=== PATIENT | male | born 1950 | race Caucasian/White ===

== ENCOUNTER → 2017-06-14 | Outpatient (CLI) | payer BC, OTHER ==
[~2017-06-14] VITALS: Ht 172.7 cm; Wt 96.2 kg
[~2017-06-14] MED LIST: AVAPRO300 MG PO; FLEXERIL PO; FLONASE 0.05%50 MCG NASAL; HYTRIN 5 M5 MG/1 CAP PO; KEFLEX500 MG PO; LEVOTHYROXIN0.137 M1 PO; LIPITOR 20 MG T20 M1 PO; NORVASC5 MG PO; REMERON15 MG PO
--- NOTE | ~2017-06-14 | HPC ---
[facility] [place] [address] PAIN MANAGEMENT CONSULTATION Name: CRYSTAL EM [facility] [id number] Admission: 06/14/17 Attend Phys: Horacio Bermudez MD Discharge: Date of : 54 Report #: [id number] THIS REPORT FOR: //name// CC: Horacio Yeung MD DATE OF SERVICE: 06/14/2017 FOLLOWUP HISTORY: The patient is a 67-year-old gentleman who has been seen in the pain clinic in the past. He underwent an epidural steroid injection in October 2016. He was having pain in the L3-4 distribution of his leg. He has noticed that his pain has started to come back. He is having pain, which radiates down into that dermatomal area, but not as severe it as it had been. At this juncture, he would like to undergo another epidural steroid injection to help with this pain, numbness, and weakness. He has had no complications from the procedure in the past. PHYSICAL EXAMINATION: Blood pressure 127/79, pulse 44, respiratory rate 14, room air saturation 97%. Height 5 feet 8 inches tall and weight 212 pounds, BMI 32. The patient has pain and discomfort in the L3-L4 distribution with numbness and tingling sensations. IMPRESSION: Lumbar radiculopathy, L3-L4 distribution/dermatomal disk areas. RECOMMENDATIONS: We discussed treatment options with the patient. Risks and benefits of an epidural steroid injection were again reviewed. Possible complications which could include infection, increased muscle soreness, headache, bleeding, muscle trauma, nerve trauma were explained and the patient elects to proceed. PROCEDURE NOTE: The patient was placed in the prone position. Fluoroscopy was used to identify the L3-L4 interspace. This area had been sterilely prepped with Betadine and infiltrated with 0.25% bupivacaine. Total of 80 mg Depo-Medrol, 40 mg triamcinolone and 2 mL of 0.25% bupivacaine was injected. The patient tolerated the procedure well. There were no complications. He will follow up in the future as needed. We would like to thank you for letting us participate in his care. We hope he continues to improve. <ELECTRONICALLY SIGNED> By: Horacio Bermudez MD 06/15/17 0822 1408 1438 Horacio Bermudez MD /nt
[2017-06-14 09:35] VITALS: BP 127/79
== END | disposition home or self-care (01) ==
LOC: PAIN 06:38
DX: M54.16 Radiculopathy, lumbar region (principal); Z98.890 Other specified postprocedural states

== ENCOUNTER → 2017-11-10 | Outpatient (CLI) | payer BC, OTHER ==
[~2017-11-10] VITALS: Ht 172.7 cm; Wt 96.6 kg
--- NOTE | ~2017-11-10 | HPC ---
[facility] [place] [address] PAIN MANAGEMENT CONSULTATION Name: CRYSTAL EM [facility] [id number] Admission: 11/10/17 Attend Phys: Horacio Bermudez MD Discharge: Date of : 54 Report #: [id number] THIS REPORT FOR: //name// CC: Horacio Yeung DATE OF SERVICE: 11/10/2017 FOLLOWUP COMPLAINT: Low back pain with pain down the right leg. Pain improved after the last epidural steroid injection and would like to proceed with another. FOLLOWUP HISTORY: The patient is a gentleman who underwent an epidural steroid injection in the L3-L4 distribution. He gleaned benefit from that. Over the last few weeks, he has noted some recurrence of discomfort. The patient underwent a last treatment in 06/2017. Now, he is noting pain again in the L3-L4 distribution radiating down into his leg with some numbness and weakness in this area. He had no complications after the last procedure. He would like to proceed with another injection today. He rates his pain as a 4/10. It gets worse in the morning. Notes that it can be helped by use of heat, cold and sometimes sitting in a sauna or whirlpool. ALLERGIES: No known drug allergies. MEDICATIONS: Norvasc 5 mg daily, Lipitor 20 mg, Avapro 300 mg, Hytrin 5 mg a total of 10 mg at bedtime, Synthroid 0.137 mcg. PHYSICAL EXAMINATION: VITAL SIGNS: Blood pressure 131/78, pulse 55, respiratory rate 16, room air saturation is 98%. Height 5 feet 8 inches, weight 213 pounds. He has not fallen since we saw him last. HEENT: Unremarkable. NECK: Supple without adenopathy. CHEST: Clear to auscultation. HEART: Regular rate. ABDOMEN: Nontender. The patient has decreased sensation to light touch, pinprick in the right L3-L4 distribution. IMPRESSION: Lumbar radiculopathy, L3-L4 dermatomal distribution. RECOMMENDATIONS: We discussed treatment options with the patient. Risks and benefits of epidural steroid injections were discussed. A model was used to review the anatomy of this area. Possible complications of the procedure which could include but are not limited to infection, increased muscle soreness, headache, bleeding, trauma, nerve trauma or muscle trauma, nerve trauma were explained. The [place] [address] PAIN MANAGEMENT CONSULTATION Name: CRYSTAL EM Room #: REG CLDalila SchwartzNickolas#: [id number] Admission: 11/10/17 Attend Phys: Horacio Bermudez MD Discharge: Date of : 54 Report #: [id number] PROCEDURE NOTE: The patient was placed in the prone position. Fluoroscopy was used to identify the L3-L4 interspace. The patient's back had been sterilely prepped with Betadine solution. An AP and lateral imaging using fluoroscopy was used to confirm appropriate needle placement. After this was performed, a total of 40 mg triamcinolone, 80 mg Depo-Medrol were injected. A total of 2 mL of 0.25% bupivacaine was infiltrated in this area. The patient tolerated the procedure well. His back was evaluated. There was no significant bleeding. A Band-Aid was placed. The patient was then taken to the recovery room where he remained for an appropriate amount of time. He will follow up in the future as needed. There were no complications. We would like to thank you for letting us participate in his care. We hope he continues to improve. <ELECTRONICALLY SIGNED> By: Horacio Bermudez MD 11/22/17 0837 1457 0100 Horacio Bermudez MD /[facility]
[2017-11-10 08:12] VITALS: BP 131/78
== END | disposition home or self-care (01) ==
LOC: PAIN 07:08
DX: M54.16 Radiculopathy, lumbar region (principal); Z98.890 Other specified postprocedural states; Z79.899 Other long term (current) drug therapy

== ENCOUNTER → 2019-06-19 | Outpatient (CLI) | payer BC, OTHER | LOC: RAD 09:45 | DX: R06.02 Shortness of breath (principal); R06.00 Dyspnea, unspecified ==

== ENCOUNTER → 2019-11-21 | Outpatient (CLI) | payer OTHER | LOC: SJCVC 15:12 | DX: I10 Essential (primary) hypertension (principal); R00.1 Bradycardia, unspecified; E78.5 Hyperlipidemia, unspecified; G47.33 Obstructive sleep apnea (adult) (pediatric); E03.9 Hypothyroidism, unspecified; E78.00 Pure hypercholesterolemia, unspecified; Z79.82 Long term (current) use of aspirin; Z79.899 Other long term (current) drug therapy; Z86.73 Personal history of transient ischemic attack (TIA), and cerebral infarction without residual deficits ==

== ENCOUNTER 2020-04-05 09:47 | Emergency (ER) | payer OTHER ==
[~2020-04-05] VITALS: Ht 170.2 cm; Wt 95.3 kg
[2020-04-05 10:06] LABS: ABSOLUTE NEUTROPHILS 4.1 thou/uL (1.4-8.2); BASOPHILS 0.9 % (0.0-2.0); EOSINOPHILS 5.1 % (0.0-3.0); HEMOGLOBIN 14.9 gm/dL (14.0-18.0); LYMPHOCYTES 24.6 % (24.0-44.0); MCH 32.7 pg (26.0-34.0); MCHC 34.7 g/dL (28.0-37.0); MCV 94.2 fL (80.0-100.0); MONOCYTES 6.8 % (1.0-8.0); PLATELET COUNT 221 thou/uL (150-400); POLYS 62.6 % (36.0-66.0); RBC 4.57 mil/uL (4.50-6.00); RDW 13.1 % (10.5-14.5); WBC 6.5 thou/uL (4.0-11.0)
[2020-04-05 10:14] LABS: ANION GAP 6 mmol/L (7-16); BUN 19 mg/dL (7-18); CALCIUM 8.5 mg/dL (8.5-10.1); CHLORIDE 105 mmol/L (98-107); CO2 30 mmol/L (21-32); GLUCOSE 103 mg/dL (74-106); POTASSIUM 3.2 mmol/L (3.5-5.1); SODIUM 141 mmol/L (136-145)
[2020-04-05 10:24] LABS: ALBUMIN 3.6 g/dL (3.4-5.0); MAGNESIUM 1.9 mg/dL (1.8-2.4); SGOT 22 U/L (15-37); SGPT 32 U/L (30-65); TOTAL BILIRUBIN 0.7 mg/dL (<0.1-1.0); TOTAL PROTEIN 7.5 g/dL (6.4-8.2); TROPONIN-I <0.06 ng/mL (<0.06)
[2020-04-05] MEDS ORDERED: NAPROSYN500 MG PO (11:11)
[2020-04-05] MEDS ORDERED: NORFLEX100 MG PO (11:11)
[2020-04-05 11:31] VITALS: BP 115/42
--- NOTE | 2020-04-05 12:10 | EKG ---
[facility] [place] [address] ELECTROCARDIOGRAM REPORT Name: CRYSTAL EM Room #: DEP [facility]..#: [id number] Admission: 04/05/20 Attend Phys: Discharge: 04/05/20 Date of : 54 Report #: [id number] THIS REPORT FOR: cc: Eduardo Yeung MD, Neal A. MD Park, Jin S. 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[employer] [facility] : 1950 Requested By: Ulices Sweeney Order Number: [id number] MD: Alonso Person Measurements Intervals [place] Rate: 55 P: 51 [place]: 181 QRS: -6 QRSD: 98 T: 66 QT: 433 QTc: 415 Interpretive Statements Sinus rhythm Probable left atrial enlargement No previous ECG available for comparison Electronically Signed On 04-05-2020 12:08:26 CDT by Alonso Person [email or web address] <ELECTRONICALLY SIGNED> By: Alonso Person MD 04/05/20 1208 0951 0 MD VIRGEN Thompson
== END 2020-04-05 11:31 | disposition home or self-care (01) ==
LOC: ER 09:47
PROVIDERS: Emergency Medicine
DX: R07.89 Other chest pain (principal); M43.6 Torticollis; E87.6 Hypokalemia; R20.2 Paresthesia of skin; R20.0 Anesthesia of skin; I10 Essential (primary) hypertension; E66.9 Obesity, unspecified; Z98.890 Other specified postprocedural states; Z79.899 Other long term (current) drug therapy; Z68.30 Body mass index [BMI] 30.0-30.9, adult

== ENCOUNTER → 2020-04-08 | Outpatient (CLI) | payer OTHER ==
[~2020-04-08] MED LIST changes: +NAPROSYN500 MG PO; +NORFLEX100 MG PO
== END ==
LOC: SJCVC 13:45
PROVIDERS: ATTEND Internal Medicine
DX: R00.1 Bradycardia, unspecified (principal); R94.31 Abnormal electrocardiogram [ECG] [EKG]; I10 Essential (primary) hypertension; E78.5 Hyperlipidemia, unspecified; G47.33 Obstructive sleep apnea (adult) (pediatric); E03.9 Hypothyroidism, unspecified; E78.00 Pure hypercholesterolemia, unspecified; Z79.82 Long term (current) use of aspirin; Z79.899 Other long term (current) drug therapy; Z82.49 Family history of ischemic heart disease and other diseases of the circulatory system; Z86.73 Personal history of transient ischemic attack (TIA), and cerebral infarction without residual deficits

== ENCOUNTER → 2020-04-21 | Outpatient (CLI) | payer OTHER | LOC: SJCVC 08:41 → SJCVCIMAG 13:25 | PROVIDERS: ATTEND Internal Medicine | DX: I08.3 Combined rheumatic disorders of mitral, aortic and tricuspid valves (principal); I77.810 Thoracic aortic ectasia; R00.1 Bradycardia, unspecified; I65.21 Occlusion and stenosis of right carotid artery; G47.30 Sleep apnea, unspecified; I10 Essential (primary) hypertension; Z86.73 Personal history of transient ischemic attack (TIA), and cerebral infarction without residual deficits ==

== ENCOUNTER → 2020-08-31 | Outpatient (CLI) | payer OTHER | LOC: LAB 09:04 | PROVIDERS: ATTEND Family Medicine | DX: Z20.828 Contact with and (suspected) exposure to other viral communicable diseases (principal) ==

== ENCOUNTER → 2020-09-11 | Outpatient (CLI) | payer OTHER | LOC: SJCVC 14:48 | PROVIDERS: ATTEND Internal Medicine | DX: I10 Essential (primary) hypertension (principal); E78.5 Hyperlipidemia, unspecified; G47.33 Obstructive sleep apnea (adult) (pediatric); G45.9 Transient cerebral ischemic attack, unspecified; C61 Malignant neoplasm of prostate; Z79.899 Other long term (current) drug therapy ==

== ENCOUNTER → 2021-06-10 | Outpatient (CLI) | payer OTHER ==
[~2021-06-10] MED LIST changes: +ASA81BEC PO; +BISOPROLOL-HCT1 EACH PO; +KLOR-CON M1010 MEQ PO; +LEVOTHYROXINE150 MCG PO
== END ==
LOC: SJCVC 11:14
PROVIDERS: ATTEND Internal Medicine
DX: R94.31 Abnormal electrocardiogram [ECG] [EKG] (principal); R00.1 Bradycardia, unspecified; R07.2 Precordial pain; I10 Essential (primary) hypertension; E78.5 Hyperlipidemia, unspecified; G47.33 Obstructive sleep apnea (adult) (pediatric); G45.9 Transient cerebral ischemic attack, unspecified; C61 Malignant neoplasm of prostate; N40.0 Benign prostatic hyperplasia without lower urinary tract symptoms; E78.00 Pure hypercholesterolemia, unspecified; E03.9 Hypothyroidism, unspecified; Z86.73 Personal history of transient ischemic attack (TIA), and cerebral infarction without residual deficits; Z79.82 Long term (current) use of aspirin; Z79.899 Other long term (current) drug therapy

== ENCOUNTER 2021-06-12 09:25 | Emergency (ER) | payer OTHER ==
[~2021-06-12] VITALS: Ht 170.2 cm; Wt 93.0 kg
[~2021-06-12 09:25] MED LIST changes: -ASA81BEC PO; -BISOPROLOL-HCT1 EACH PO; -KLOR-CON M1010 MEQ PO; -LEVOTHYROXINE150 MCG PO
[2021-06-12] MEDS ORDERED: BISOPROLOL-HCT1 EACH PO (09:48)
[2021-06-12] MEDS ORDERED: LEVOTHYROXINE150 MCG PO (09:48)
[2021-06-12] MEDS ORDERED: KLOR-CON M1010 MEQ PO (09:48)
[2021-06-12 09:59] LABS: ABSOLUTE NEUTROPHILS 3.7 thou/uL (1.4-8.2); BASOPHILS 0.9 % (0.0-2.0); EOSINOPHILS 6.4 % (0.0-3.0); HEMATOCRIT 40.1 % (42.0-52.0); HEMOGLOBIN 13.7 gm/dL (14.0-18.0); LYMPHOCYTES 24.8 % (24.0-44.0); MCH 32.8 pg (26.0-34.0); MCHC 34.1 g/dL (28.0-37.0); MCV 96.2 fL (80.0-100.0); MONOCYTES 9.3 % (1.0-8.0); PLATELET COUNT 218 thou/uL (150-400); POLYS 58.6 % (36.0-66.0); RBC 4.17 mil/uL (4.50-6.00); RDW 13.7 % (10.5-14.5); WBC 6.2 thou/uL (4.0-11.0)
[2021-06-12 10:42] LABS: ANION GAP 9 mmol/L (7-16); BUN 24 mg/dL (7-18); CALCIUM 8.9 mg/dL (8.5-10.1); CHLORIDE 107 mmol/L (98-107); CO2 27 mmol/L (21-32); GLUCOSE 93 mg/dL (74-106); POTASSIUM 3.9 mmol/L (3.5-5.1); SODIUM 143 mmol/L (136-145)
[2021-06-12 10:51] LABS: ALBUMIN 3.8 g/dL (3.4-5.0); SGOT 19 U/L (15-37); SGPT 19 U/L (30-65); TOTAL BILIRUBIN 0.6 mg/dL (0.2-1.0); TOTAL PROTEIN 7.4 g/dL (6.4-8.2); TROPONIN-I <0.06 ng/mL (<0.06)
[2021-06-12 12:19] VITALS: BP 141/69
[2021-06-12] MEDS ORDERED: ASA81BEC PO (12:19)
--- NOTE | 2021-06-13 09:21 | EKG ---
[place] [address] [facility] [place] [address] ELECTROCARDIOGRAM REPORT Name: CRYSTAL EM Room #: [facility]P [facility] [id number] Admission: 06/12/21 Attend Phys: Discharge: 06/12/21 Date of : 54 Report #: [id number] [facility] ED Test Date: 2021-06-12 Test Time: 09:31:52 Pat Name: CRYSTAL EM Department: Room: Gender: M [employer]ty [employer]: : 1950 Requested By: Stanislaw Bennett Order Number: [id number] MD: Lucho Orourke Measurements Intervals [place] Rate: 44 P: 49 [place]: 177 QRS: -7 QRSD: 97 T: 28 QT: 472 QTc: 404 Interpretive Statements Sinus bradycardia Compared to ECG 04/05/2020 09:51:03 Sinus rhythm no longer present Electronically Signed On 06-13-2021 9:21:47 CDT by Lucho Orourke [email or web address] <ELECTRONICALLY SIGNED> By: Lucho Orourke MD, [facility] 06/13/21 0921 0931 0931 Lucho Orourke MD, FACKeira /EPI
== END 2021-06-12 12:19 | disposition home or self-care (01) ==
LOC: ER 09:25
PROVIDERS: Emergency Medicine
DX: R61 Generalized hyperhidrosis (principal); R11.0 Nausea; Z79.899 Other long term (current) drug therapy

== ENCOUNTER → 2021-06-24 | Outpatient (CLI) | payer OTHER ==
[~2021-06-24] MED LIST changes: +ASA81BEC PO; +BISOPROLOL-HCT1 EACH PO; +KLOR-CON M1010 MEQ PO; +LEVOTHYROXINE150 MCG PO
== END ==
LOC: SJCVCIMAG 07:46
PROVIDERS: ATTEND Internal Medicine
DX: R00.1 Bradycardia, unspecified (principal); R07.89 Other chest pain; R06.00 Dyspnea, unspecified; E78.5 Hyperlipidemia, unspecified; I10 Essential (primary) hypertension; Z79.82 Long term (current) use of aspirin; Z79.899 Other long term (current) drug therapy

== ENCOUNTER → 2021-12-14 | Outpatient (CLI) | payer OTHER | LOC: SJCVC 09:45 | PROVIDERS: ATTEND Internal Medicine | DX: R00.1 Bradycardia, unspecified (principal); C61 Malignant neoplasm of prostate; I10 Essential (primary) hypertension; E78.5 Hyperlipidemia, unspecified; G47.33 Obstructive sleep apnea (adult) (pediatric); G45.9 Transient cerebral ischemic attack, unspecified; E78.00 Pure hypercholesterolemia, unspecified; E03.9 Hypothyroidism, unspecified; N20.0 Calculus of kidney; Z86.73 Personal history of transient ischemic attack (TIA), and cerebral infarction without residual deficits; Z79.82 Long term (current) use of aspirin; Z79.899 Other long term (current) drug therapy ==